=== PATIENT | male | born 1940 | race Caucasian/White ===

== ENCOUNTER 2016-12-04 14:18 | Outpatient (CLI) | payer MEDICARE, BC ==
[~2016-12-04] VITALS: Ht 175.3 cm; Wt 71.8 kg
[2016-12-04 15:20] VITALS: BP 110/64; PULSE 86; RESP 18; Ht 175.3 cm; Wt 71.8 kg
[2016-12-04] MEDS ORDERED: GLIP5TAB13 PO (15:39)
[2016-12-04] MEDS ORDERED: LISI10TA2 PO (15:39)
[2016-12-04] MEDS ORDERED: HYDR-902 PO (15:39)
[2016-12-04] MEDS ORDERED: DONE10TA7 PO (15:39)
--- NOTE | 2016-12-04 16:11 | PN ---
Date/Time of Note Date/Time of Note DATE: 12/04/16 TIME: 16:03 Outpatient Progress Note Chief Complaint Metastatic cancer/diabetes/hypertension/dementia/anemia HPI Metastatic cancer/patient has pleural effusion, and lung cancer, with metastasis , patient had a liver biopsy, patient also had thoracocentesis at [facility], and patient has squamous cell carcinoma, Diabetes/no polydipsia polyuria hypoglycemia, gastroparesis, Hypertension/no headache or dizziness, no lightheadedness, Dementia/short-term impaired memory and long-term, Anemia/patient feels slight weakness and tiredness, no bleeding, no ecchymoses bruise, Review of Systems Const: No Fever, no chills, no Wt. loss, nslight fatigue, normal appetite, no diaphoresis. Eyes: No pain, no discharge, no redness, no visual change, no foreign body. ENT: No pain, no bleeding, no congestion, no sore throat, no dysphagia, no discharge or rhinitis. Lymph: No adenopathy, no tender nodes, no lymphedema. Resp: No SOB, no cough, no sputum, no wheezing, no chest pain. CV: No chest pain, no palpitaions, no BURNS, no PND, no edema. GI: Normal appetite, no pain, no nausea, no vomiting, no diarrhea, no blood, no constipation. : No frequency, no urgency, no dysuria, no hematuria, no flank pain, no discharge, no bleeding. Musc: no skin lesions, no erythema, no laceration, no bruising, no pruritus. Neuro: No NAVA, no dizziness, no syncope, no seizure, no focal-weakness. Endo: No polyuria, no polydypsia, no dry-skin, no temp-intolerance. Psych: No hallucinations, no depression, no anxiety, no suicidal ideation. Ext: No edema, no pain, no ulcer, no weakness. Physical Exam Vital Signs Date Time Temp Pulse Resp B/P Pulse Ox O2 Delivery O2 Flow Rate FiO2 12/04/16 15:20 97.3 86 18 110/64 94 Room Air General Appearance: A 76 g year-old male who appears well-developed, well- nourished, in no acute distress feel generalized weakness and tiredness,. HEENT: Head normocephalic, atraumatic. Pupils equal, round, reactive to light and accommodate. Sclerae are no jaundice. Nasal turbinates pink without erythema or nasal discharge. Mucous membranes pink and moist without lesions. Oropharynx clear without any exudate or discharge. NECK: Supple. Trachea midline, No thyromegaly, No cervical lymphadenopathy, No mass, No carotid bruits, No JVD, Carotid pulses 2+ bilaterally. PULMONARY: Clear to auscultaion bilaterally, No retractions, Chest expansion symmetric bilaterally, no rales, no ronchi, no dulness on percussion. CARDIAC: Normal SI and S2, Regular rate and rythm, no murmur, gallop, or rub. GASTROINTESTINAL: Abdomen is soft, non-tender, Non Rigid, No distention, Positive bowel sounds x4 quadrants, Liver normal. SKIN: Warm, dry, no rash, no bruise, no echmosis. EXTREMITIES: Bilateral lower extremities normal, no edema, no phlabitus, pulse palpable, no contracture. Minimal right shoulder discomfort, and minimal right side of the lung discomfort, MUSCULOSKELETAL: Spine Normal, Non-tender, Normal range of motion, No swelling, no deformity, no clubbing, or cyanosis, the patient has no edema to bilateral lower extremities, dorsalis pedis pulses palpable bilaterally. NEUROLOGIC: The patient is awake, alert, oriented, responding to yes/no questions appropriately, moving all extremities, cranial nerve intact, normal strenght, normal power, normal coordination, normal gait. Allergies Coded Allergies: No Known Drug Allergies (Verified Allergy, Unknown, 12/04/16) PMH Diabetes/hypertension/pleural effusion/see a lung/hypertension diabetes anemia/ hypoalbuminemia hyponatremia Thoracocentesis and biopsy mass, Social Hx No smoking no drinking, Family Hx Noncontributory Assessment/Plan Impression CL lung/metastatic cancer/diabetes/hypertension/dementia/anemia/pleural effusion Plan Patient education done about the disease, patient explained about the disease and possible complication, Patient advised to follow with the oncologist, also advised to follow with the primary care physician, We will get a CBC CMP, patient does not have inhaler, so will refill it, patient also need vitamin D, Will review the biopsy report, Medications Home Meds Reported Medications Lisinopril* (Lisinopril*) 10 Mg Tablet, 10 MG PO DAILY, #30 TAB 12/04/16 Donepezil* (Donepezil*) 10 Mg Tablet, 10 MG PO DAILY, #30 TAB 12/04/16 Glipizide* (Glipizide*) 5 Mg Tablet, 5 MG PO BID, TAB 12/04/16 Hydrocodone/Acetaminophen ([place] 10-325 Tablet) 1 Each Tablet, 1 EACH PO Q6 for PAIN LEVEL 6-10, TAB 12/04/16 MARY JO ODOM MD Dec 04, 2016 16:11
== END 2016-12-04 17:00 | disposition home or self-care (01) ==
LOC: DCC 14:18
PROVIDERS: ATTEND Internal Medicine
DX: C34.90 Malignant neoplasm of unspecified part of unspecified bronchus or lung (principal); C79.9 Secondary malignant neoplasm of unspecified site; E11.9 Type 2 diabetes mellitus without complications; I10 Essential (primary) hypertension; F03.90 Unspecified dementia, unspecified severity, without behavioral disturbance, psychotic disturbance, mood disturbance, and anxiety; D64.9 Anemia, unspecified; J90 Pleural effusion, not elsewhere classified